=== PATIENT | male | born 1960 | race African-American/Black ===

== ENCOUNTER 2023-04-28 07:14 | Emergency (ER) | payer MEDICAID ==
[~2023-04-28] VITALS: Ht 177.8 cm; Wt 91.0 kg
[2023-04-28 08:39] VITALS: BP 132/85; PULSE 89; RESP 18; O2SAT 98
[2023-04-28] MEDS ORDERED: HYDR-4902 PO (08:45)
[2023-04-28] MEDS ORDERED: HYDROcodone-ACET 5/325MG TAB PO ONE (08:45)
== END 2023-04-28 08:58 | disposition home or self-care (01) ==
LOC: ER 07:14 → EDBD 07:14 → ER 08:58
DX: S46.812A Strain of other muscles, fascia and tendons at shoulder and upper arm level, left arm, initial encounter (principal); S23.41XA Sprain of ribs, initial encounter; Z79.899 Other long term (current) drug therapy; W01.0XXA Fall on same level from slipping, tripping and stumbling without subsequent striking against object, initial encounter; Y93.E1 Activity, personal bathing and showering; Y92.89 Other specified places as the place of occurrence of the external cause; Y99.8 Other external cause status
CPT/HCPCS: 71101; 73030